=== PATIENT | male | born 1985 | race Caucasian/White ===

== ENCOUNTER 2017-09-22 16:13 | Emergency (ER) | payer OTHER ==
[~2017-09-22 16:13] MED LIST: ALL300 PO; CLR10 PO; OMEP20CA9 PO
[2017-09-22 16:18] VITALS: Ht 190.5 cm
[2017-09-22] MEDS ORDERED: CEFAZOLIN SOD 1000MG/7.5 ML IV PUSH IV STA (16:30)
[2017-09-22] MEDS ORDERED: SODIUM CHLORIDE 0.9% 1000ML 1,000 ML IV STA (16:31)
[2017-09-22] MEDS ORDERED: KETOROLAC TROMETHAMINE 30 MG/ML VIAL IV STA (16:31)
[2017-09-22] MEDS ORDERED: BUPR150T5 PO (16:35)
[2017-09-22] MEDS ORDERED: CLINDAMYCIN 600 MG/54 ML D5W IV ONE (16:45)
[2017-09-22 16:59] LABS: BASO % 0.2 %; BASO ABS # 0.02 K/uL (0-0.2); EOS % 1.9 %; EOS ABS # 0.16 K/uL (0-0.5); HEMATOCRIT 42.8 % (42-52); HEMOGLOBIN 14.4 g/dL (14.0-18.0); IG# 0.02 K/uL (0.00-0.02); LYMPH % 23.3 %; LYMPH ABS # 1.94 K/uL (1.2-3.4); MEAN CELL VOLUME 84.1 fL (80-100); MEAN CORPUSCULAR HEMOGLOBIN 28.3 pg (25-34); MEAN CORPUSCULAR HGB CONC 33.6 g/dl (32-36); MEAN PLATELET VOLUME 10.4 fL (7.4-10.4); MONO % 6.9 %; MONO ABS # 0.57 K/uL (0.11-0.59); NEUT % 67.5 %; NEUT ABS # 5.61 K/uL (1.4-6.5); PLATELET COUNT 159 K/uL (130-400); RED CELL DISTRIBUTION WIDTH SD 43.2 fL (36.4-46.3); WHITE BLOOD COUNT 8.32 K/uL (4.8-10.8)
[2017-09-22] MEDS ORDERED: CLINDAMYCIN IV 600 MG in DEXTROSE 5% 50ML 50 ML IV ONE (17:15)
[2017-09-22 17:16] LABS: BLOOD UREA NITROGEN 15 mg/dl (7-18); CALCIUM 8.5 mg/dl (8.5-10.1); CARBON DIOXIDE 32 mmol/L (21-32); CREATININE 1.02 mg/dl (0.60-1.40); GLUCOSE 90 mg/dl (70-99); POTASSIUM 3.7 mmol/L (3.5-5.1); SODIUM 139 mmol/L (136-145)
[2017-09-22] MEDS ORDERED: CLIN300C2 PO (17:54)
[2017-09-22] MEDS ORDERED: CLINDAMYCIN HCL 150 MG CAP PO ONE (18:00)
[2017-09-22] MEDS ORDERED: EMPTY 8 DRAM VIAL ONE (18:04)
[2017-09-22 18:26] VITALS: BP 143/76; PULSE 79; TEMP 37; O2SAT 98
--- NOTE | 2017-09-22 20:59 | EMERGENCY ROOM VISIT NOTE ---
History Report prepared by Niaibalejandro: Heidi Greene Under the Supervision of: Dr. Elder Pena D.O. First contact with patient: 16:24 Chief Complaint: FEVER Stated Complaint: FEVER, CELLULITIS History of Present Illness The patient is a 32 year old male who presents to the Emergency Room with complaints of a persistent fever for the past 2 days. He was unable to check his temperature at home. He reports he also noticed pain and redness in his left lower leg 2 days ago. He rates his discomfort as a 2/10 in severity. He denies any known injury but admits the tenderness feels similar to cellulitis he has experienced in the past. The patient denies any history of diabetes and chronic medical problems. He also denies any headache, change in vision, chest pain, shortness of breath, nausea, vomiting, diarrhea, pain with urination, and melena. 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 A total of 10 systems reviewed and were otherwise negative. Past Medical & Surgical Medical Problems: (1) Perforated small intestine Family History Cancer Diabetes mellitus FH: heart disease Hypertension Social History Smoking Status: Never Smoker Alcohol Use: occasionally Drug Use: none Marital Status: Housing Status: lives with family Occupation Status: employed Current/Historical Medications Scheduled Allopurinol (Allopurinol), 300 MG PO DAILY Bupropion Hcl (Bupropion Hcl Xl), 150 MG PO DAILY Clindamycin Hcl (Cleocin), 300 MG PO TID Omeprazole (Prilosec), 20 MG PO Q2D Scheduled PRN Loratadine (Claritin), 10 MG PO DAILY PRN for ALLERGIC REACTION Allergies Coded Allergies: Cephalosporins (Verified Allergy, Severe, ANAPHYLAXIS, 03/17/15) Physical Exam Vital Signs Date Time Temp Pulse Resp B/P (MAP) Pulse Ox O2 Delivery O2 Flow Rate FiO2 09/22/17 18:26 37.0 79 18 143/76 98 09/22/17 16:18 37.0 101 17 144/82 93 Room Air Physical Exam GENERAL: Sitting up in bed, alert, well appearing, well nourished, no distress, non-toxic EYE EXAM: normal conjunctiva. OROPHARYNX: no exudate, no erythema, lips, buccal mucosa, and tongue normal and mucous membranes are moist NECK: supple, no nuchal rigidity, no adenopathy, non-tender LUNGS: Clear to auscultation. Normal chest wall mechanics HEART: no murmurs, S1 normal and S2 normal ABDOMEN: abdomen soft, non-tender, normo-active bowel sounds, no masses, no rebound or guarding. BACK: Back is symmetrical on inspection and there is no deformity, no midline tenderness, no CVA tenderness. SKIN: no rashes and no bruising UPPER EXTREMITIES: upper extremities are grossly normal. LOWER EXTREMITIES: Left lower extremity with erythema tracking up to the proximal portion of the tibia, tender to palpation, warmth without induration, wraps around to both sides of the calf, but not circumferential. NEURO EXAM: Normal sensorium, cranial nerves II-XII grossly intact, normal speech, no gross weakness of arms, no gross weakness of legs. Gross sensation intact. Medical Decision & Procedures Laboratory Results 09/22/17 16:30 Red Blood Count 5.09, Mean Corpuscular Volume 84.1, Mean Corpuscular Hemoglobin 28.3, Mean Corpuscular Hemoglobin Concent 33.6, Mean Platelet Volume 10.4, Neutrophils (%) (Auto) 67.5, Lymphocytes (%) (Auto) 23.3, Monocytes (%) (Auto) 6.9, Eosinophils (%) (Auto) 1.9, Basophils (%) (Auto) 0.2, Neutrophils # (Auto) 5.61, Lymphocytes # (Auto) 1.94, Monocytes # (Auto) 0.57, Eosinophils # (Auto) 0.16, Basophils # (Auto) 0.02 09/22/17 16:30 Test 09/22/17 16:30 White Blood Count 8.32 K/uL (4.8-10.8) Red Blood Count 5.09 M/uL (4.7-6.1) Hemoglobin 14.4 g/dL (14.0-18.0) Hematocrit 42.8 % (42-52) Mean Corpuscular Volume 84.1 fL (80-100) Mean Corpuscular Hemoglobin 28.3 pg (25-34) Mean Corpuscular Hemoglobin Concent 33.6 g/dl (32-36) Platelet Count 159 K/uL (130-400) Mean Platelet Volume 10.4 fL (7.4-10.4) Neutrophils (%) (Auto) 67.5 % Lymphocytes (%) (Auto) 23.3 % Monocytes (%) (Auto) 6.9 % Eosinophils (%) (Auto) 1.9 % Basophils (%) (Auto) 0.2 % Neutrophils # (Auto) 5.61 K/uL (1.4-6.5) Lymphocytes # (Auto) 1.94 K/uL (1.2-3.4) Monocytes # (Auto) 0.57 K/uL (0.11-0.59) Eosinophils # (Auto) 0.16 K/uL (0-0.5) Basophils # (Auto) 0.02 K/uL (0-0.2) RDW Standard Deviation 43.2 fL (36.4-46.3) RDW Coefficient of Variation 14.0 % (11.5-14.5) Immature Granulocyte % (Auto) 0.2 % Immature Granulocyte # (Auto) 0.02 K/uL (0.00-0.02) Anion Gap 2.0 mmol/L (3-11) Estimated GFR () 112.2 Estimated GFR (Non- 96.8 BUN/Creatinine Ratio 14.8 (10-20) Calcium Level 8.5 mg/dl (8.5-10.1) Laboratory results per my review. Medications Administered Medications (Trade) Dose Ordered Sig/Cassidy Route Start Time Stop Time Status Last Admin Dose Admin Sodium Chloride 1,000 ml @ 999 mls/hr Q1H1M STAT IV 09/22/17 16:31 09/22/17 17:31 DC 09/22/17 16:31 999 MLS/HR Ketorolac Tromethamine (Toradol Inj) 30 mg NOW STAT IV 09/22/17 16:31 09/22/17 16:43 DC 09/22/17 16:31 30 MG Clindamycin Phosphate 600 mg/ Dextrose 54 ml @ 108 mls/hr NOW ONCE IV 09/22/17 17:15 09/22/17 17:44 DC 09/22/17 17:03 108 MLS/HR Clindamycin HCl (Cleocin Cap) 300 mg ONE ONCE PO 09/22/17 18:00 09/22/17 18:01 DC 09/22/17 18:06 300 MG ED Course ED COURSE: Vital signs were reviewed and showed the patient is hypertensive. The patients medical record was reviewed The above diagnostic studies were performed and reviewed. ED treatments and interventions as stated above. 1627: The patient was evaluated in room B8. A complete history and physical examination was performed. 1630: Cefazolin Sodium 3000 mg IV. 1631: Toradol 30 mg IV, NSS 1000 ml @ 999 mls/hr IV. 1715: Clindamycin Phosphate 600 mg/Dextrose 54 ml @ 108 mls/hr IV. 1750: Upon reevaluation, the patient is feeling well and resting comfortably. I discussed my findings with the patient and he understands and agrees with the treatment plan. 1800: Cleocin 300 mg PO. Based on the patients age, coexisting illnesses, exam and lab findings the decision to treat as an outpatient was made. The patient remained stable while under my care. The patient appeared well at the time of discharge. Medical Decision Differential diagnosis includes etiologies such as cellulitis, abscess, MRSA infection, DVT, necrotizing fasciitis, dermatitis, drug eruption, as well as others were entertained. Patient is a 32-year-old male who presents to ER for pain and redness of his left trevizo. On exam he has a clear and obvious cellulitis without induration. He is nondiabetic. Nonimmune compromised. CBC all BMP was unremarkable. Vitals show a mild tachycardia. He was given fluids and IV antibiotics. Patient was updated bedside. He has an allergy to cephalosporins which is anaphylaxis. Secondary to this he was discharged with clindamycin following IV dose. He tolerated this very well last time when he had the same presentation. Skin was outlined. He is given checked instructions to return if anything worsens. Discussed with Pt concerning signs and symptoms to watch out for. Pt was instructed to follow up with their PCP and discussed with the patient their option to return to the ED at anytime for persistent or worsening symptoms. The appropriate anticipatory guidance and out-patient management, including indications for return to the emergency department, were explained at length to the patient and understood. Medication Reconcilliation Current Medication List: was personally reviewed by me Blood Pressure Screening Patient's blood pressure: Elevated blood pressure Blood pressure disposition: Referred to PCP Impression Primary Impression: Cellulitis Scribe Attestation The scribe's documentation has been prepared under my direction and personally reviewed by me in its entirety. I confirm that the note above accurately reflects all work, treatment, procedures, and medical decision making performed by me. Departure Information Dispostion Home / Self-Care Prescriptions Clindamycin Hcl (CLEOCIN) 300 Mg Cap 300 MG PO TID for 10 Days, CAP Prov: PenaElder, DO 09/22/17 Referrals No Doctor, Assigned (PCP) Patient Instructions Cellulitis - [facility], My [facility] Additional Instructions Please follow up with your primary care doctor with in the next 24 hours. Any worsening of your symptoms, please return to the ED immediately. This includes any fevers greater than 100.4, worsening pain, increased redness or spreading of the redness beyond the line, redness shooting up your leg, unable to eat or drink, or any other concerning signs or symptoms from your standpoint. Please take antibiotics as prescribed. Redness may slightly worsening over the next 24 hours and touch/slightly go beyond the blue line. It should not worsen beyond 24 hours. At 48 hours he should be seeing improvement. Problem Qualifiers Primary Impression: Cellulitis Site of cellulitis: unspecified site Qualified Codes: L03.90 - Cellulitis, unspecified
== END 2017-09-22 18:15 | disposition home or self-care (01) ==
LOC: C.EDB 16:14
DX: L03.116 Cellulitis of left lower limb (principal); Z83.3 Family history of diabetes mellitus; Z82.49 Family history of ischemic heart disease and other diseases of the circulatory system

== ENCOUNTER 2021-12-01 12:17 | Observation (INO) ==
--- NOTE | 2021-12-01 12:25 | Emergency Department Note ---
Impression & Plan Abdominal pain, acute, right lower quadrant ED Provider Note CHIEF COMPLAINT: Right lower quadrant abdominal pain HISTORY OF PRESENTING ILLNESS: This is a 36-year-old male who presents to the emergency department by private vehicle with complaint of right lower quadrant abdominal pain that started 3 days ago. The patient states that the pain has been constant, describes as a dull ache, and rates the pain 2/10. He has been taking Tylenol and ibuprofen without much relief. He denies any associated nausea, vomiting, or diarrhea. He does note that he has been feeling slightly constipated. He has had a decreased appetite. He denies fevers or chills. Patient states that he had a CT scan performed at [facility] yesterday, which he states was performed because "I am too big for the scanner machines here." He states that he was called today and notified that his scan s howed possible appendicitis, which is why he presents to the emergency department today. He notes previous abdominal surgeries of cholecystectomy and history of a perforated diverticulitis with partial colectomy, the surgeries were performed about 12 years ago. REVIEW OF SYSTEMS: A complete 10 point review of systems was reviewed with the patient with pertinent positives and negatives as per history of present illness. All else were negative. PAST MEDICAL HISTORY: Hypertension, GERD, anxiety, depression, gout, history of cholecystectomy and bowel resection secondary to perforated bowel from diverticulitis SOCIAL HISTORY: Lives at home with family, he denies tobacco use ALLERGIES: Reviewed in chart and with the patient PHYSICAL EXAM: CONSTITUTIONAL: Pleasant and cooperative. Nontoxic-appearing and time no acute distress. Mildly dehydrated, but otherwise well appearing and well nourished. HEENT: Normocephalic, atraumatic. Pharynx normal. Tacky mucous membranes. NECK: Supple, full active range of motion without discomfort. RESPIRATORY: Clear to auscultation bilaterally with no wheezing, crackles, rhonchi or stridor. Equal expansion bilaterally. CARDIOVASCULAR: Regular rate and rhythm with no murmurs, rubs or gallops. Normal peripheral perfusion. No edema. GASTROINTESTINAL: Tender to palpation in the right lower quadrant with slight guarding and positive rebound pain. Abdomen is otherwise nontender and soft. Morbidly obese abdomen. Ventral hernia overlying midline surgical scar, nontender and reduces easily. Bowel sounds present in all quadrants. No CVA tenderness bilaterally. MUSCULOSKELETAL: Full range of motion of all joints without discomfort. INTEGUMENTARY: No rash or other significant dermatologic conditions noted. NEUROLOGIC: Alert and oriented X 4 with normal affect. Normal strength and sensation in all 4 extremities. Normal speech. Normal gait observed. ED COURSE AND MEDICAL DECISION MAKING: CC: Patient presenting with complaint of right lower quadrant abdominal pain DIFFERENTIAL DIAGNOSIS: Includes, but not limited to appendicitis, infections, diverticulitis, UTI, obstruction, mesenteric ischemia, aortic pathology, inflammatory bowel disease, renal colic, PUD, pancreatitis, biliary pathology, hernia, volvulus, constipation, as well as other pathologies. INTERPRETATION OF LABS: No leukocytosis, mild anemia, normal platelets, no s ignificant electrolyte abnormalities, normal renal function, normal liver enzymes and lipase. Coagulation factors within normal limits. UA negative for infection. COVID-19 test negative. MEDICATION RECONCILIATION: I attest that I have personally reviewed the patient's current medication list. INITIAL VITAL SIGNS REVIEW: I reviewed the patient's initial vital signs and interpret them as follows: T: Afebrile; BP: Hypertensive; HR: Within normal limits; RR: Within normal limits; Pulse Ox: Within normal limits on room air. MDM SUMMARY: Patient was evaluated at bedside, history and physical exam performed. Patient is alert and oriented, in no acute distress, resting calmly in stretc her. He is afebrile and nontoxic-appearing, and appears mildly dehydrated clinically. Tenderness to palpation in the right lower quadrant abdomen, no acute abdomen. Patient is morbidly obese with a BMI of 61. [facility], noting CT of the abdomen/pelvis was performed yesterday, which did note a prominent appearing appendix with hazy and ill-defined borders, noting suspected possible appendicitis. Of note, report states that IV and oral contrast were not performed, however the patient reports that he did have oral contrast and received IV contrast for the study. Labs were also reviewed and were fairly unremarkable, noting WBC of 8.9 hemoglobin 13.5, and platelets 195 creatinine 1.1 normal electrolytes. Cardiac monitoring: An order was placed for continuous cardiac monitoring. The monitor shows a rate of 78 bpm with normal sinus rhythm. Orders were placed for labs, UA, and IV fluid bolus for hydration we will keep the patient n.p.o. for now. Patient discussed with Dr. Zimmerman, who agrees with my assessment, plan, and disposition. Labs reviewed as above, again noting no leukocytosis or other abnormalities. No UTI. Lactate is within normal limits. I spoke on the phone with Emanuel Mccracken PA-C with General Surgery, who agreed to evaluate the patient. The patient was evaluated also by Dr. Martinez, General Surgery, who felt that the patient should be admitted to the hospital for IV antibiotics and serial examinations. He requested that the patient be admitted to the hospitalist service. IV Zosyn 4.5 g was ordered. I spoke on the phone with the [facility] hospitalist team who agreed to evaluate the patient for admission. Covid test was also ordered. Patient reassessed multiple times throughout ED stay, he has remained hemodynamically stable and afebrile and continues to decline anything for pain. The patient was updated on all results and plan for admission, all questions were answered to the best my ability and the patient was agreeable to this plan. The patient was stable at the time of admission. The chart was completed utilizing [id number] Speech voice recognition software. Grammatical errors, random word insertions, pronoun errors, and incomplete sentences are an occasional consequence of this system due to software limitations, ambient noise, and hardware issues. Any formal questions or concerns about the content, text, or information contained within the body of this dictation should be directly addressed to the nurse practitioner for clarification. 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 Depression Diverticular disease Diverticulitis of colon with perforation GERD (gastroesophageal reflux disease) Gout Perforated small intestine Surgical History History of bowel resection perforated bowel d/t diverticulitis History of cholecystectomy History of tooth extraction wisdom teeth Family History Father Family history of diabetes mellitus Grandmother (Paternal) Family history of diabetes mellitus Grandfather (Paternal) Family history of diabetes mellitus Mother Family history of esophageal cancer Social History Smoking Status: Never smoker Second Hand Exposure: Yes (parents smoked); Hx Alcohol Use: Yes Alcohol type: beer, wine and hard liquor Hx Substance Use: No Preferred Language: [place] Zealander Communication Ability: Effective Classroom Assistant Required: No Beliefs That Will Affect Care: None Current Living Situation: Spouse and Family Current Living Situation Comment: Lives with and 2 kids Feels Safe at Home: Yes Assistive Devices: Contacts and Glasses Allergies Allergies Allergy/AdvReac Type Severity Reaction Status Date / Time Cephalosporins Allergy Severe ANAPHYLAXIS Verified 12/01/21 15:32 ciprofloxacin [From Cipro] Allergy Severe Tachycardia Unverified 12/01/21 15:32 Home Meds Home Medications Medication Instructions Recorded Confirmed allopurinol 300 mg tablet 300 mg PO QAM 09/29/18 12/01/21 bupropion HCl 300 mg 24 hr tablet, 300 mg PO QAM 09/29/18 12/01/21 extended release (Wellbutrin XL) omeprazole 20 mg tablet,delayed 20 mg PO QAM 09/29/18 12/01/21 release lisinopril 20 1 tab PO QAM 04/17/20 12/01/21 mg-hydrochlorothiazide 12.5 mg tablet sertraline 50 mg tablet 50 mg PO QAM 10/02/20 12/01/21 Lactobacillus rhamnosus GG 10 1 cap PO QAM 11/17/21 12/01/21 billion cell capsule (Culturelle) cyclobenzaprine 10 mg tablet 10 mg PO BID PRN 11/17/21 12/01/21 Results & Data (ED) Vital Signs Vital Signs - 24 hr 12/01/21 12:20 12/01/21 15:13 Temperature 36.5 C Temperature Source Temporal Artery Scan Pulse Rate 86 78 Pulse Rate [Apical] 92 H Respiratory Rate 20 22 Respiratory Effort / Characteristics Non-Labored Spontaneous Non-Labored Spontaneous Respiratory Depth Normal Normal Respiratory Pattern Regular Regular Blood Pressure 170/96 H Blood Pressure [Left Arm] 124/75 Blood Pressure Mean 120 Blood Pressure Mean [Left Arm] 91 Blood Pressure Position Sitting Pulse Oximetry 98 99 Oxygen Delivery Method Room Air Room Air Sepsis Recent Fever Within 48 Hours No Sepsis New/Unexplained Change in Mental Status No Sepsis Action Taken by Nursing No Action Required Laboratory Data Result diagrams: 12/01/21 12:50 12/01/21 12:50 Lab Results 12/01/21 12/01/21 12/01/21 Range/Units 12:50 12:50 12:55 WBC 7.28 (4.8-10.8) K/uL RBC 4.87 (4.7-6.1) M/uL Hgb 13.6 L (14.0-18.0) g/dL Hct 41.8 L (42-52) % MCV 85.8 (80-100) fL MCH 27.9 (25-34) pg MCHC 32.5 (32-36) g/dL RDW Std Deviation 48.0 H (36.4-46.3) fL RDW Coeff of Donald 15.4 H (11.5-14.5) % Plt Count 189 (130-400) K/uL MPV 10.6 H (7.4-10.4) fL Immature Gran % (Auto) 0.1 % Neut % (Auto) 64.9 % Lymph % (Auto) 26.1 % [place] % (Auto) 6.0 % Eos % (Auto) 2.6 % Baso % (Auto) 0.3 % Neut # (Auto) 4.72 (1.4-6.5) K/uL Lymph # (Auto) 1.90 (1.2-3.4) K/uL [place] # (Auto) 0.44 (0.11-0.59) K/uL Eos # (Auto) 0.19 (0-0.5) K/uL Baso # (Auto) 0.02 (0-0.2) K/uL Immature Gran # (Auto) 0.01 (0.00-0.02) K/uL PT (9.0-12.0) Seconds INR (0.9-1.1) Sodium 138 (136-145) mmol/L Potassium 3.8 (3.5-5.1) mmol/L Chloride 101 (98-107) mmol/L Carbon Dioxide 33 H (21-32) mmol/L Anion Gap 4 (3-11) BUN 13 (6-23) mg/dl Creatinine 0.88 (0.6-1.4) mg/dl Est Cr Clr Drug Dosing 234.9 ml/min Est GFR ( Amer) 128.1 ml/min Est GFR (Non-Af Amer) 110.5 ml/min BUN/Creatinine Ratio 14.8 (10-20) Glucose 125 H (70-99(Fasting)) mg/dl Lactate (0.4-2.0) mmol/L Calcium 8.7 (8.5-10.1) mg/dl Total Bilirubin 1.0 (0.2-1.0) mg/dl AST 28 (13-39) U/L ALT 54 H (7-52) U/L Alkaline Phosphatase 93 (34-104) U/L Total Protein 6.6 (6.0-8.3) gm/dl Albumin 4.1 (3.4-5.0) gm/dl Globulin 2.5 (2.5-4.0) gm/dl Albumin/Globulin Ratio 1.6 (0.9-2) Lipase 23 (11-82) U/L Urine Color Yellow Urine Appearance Clear (Clear) Urine pH 7.0 (4.5-7.5) Ur Specific [place] 1.009 (1.000-1.030) Urine Protein Negative (Negative) Urine Glucose (UA) Negative (Negative) Urine Ketones Negative (Negative) Urine Blood Negative (Negative) Urine Nitrite Negative (Negative) Urine Bilirubin Negative (Negative) Urine Urobilinogen Positive H (Negative) Ur Leukocyte Esterase Negative (Negative) SARS-CoV-2, RNA, NAAT (NEGATIVE) 12/01/21 12/01/21 12/01/21 Range/Units 14:05 14:05 15:09 WBC (4.8-10.8) K/uL RBC (4.7-6.1) M/uL Hgb (14.0-18.0) g/dL Hct (42-52) % MCV (80-100) fL MCH (25-34) pg MCHC (32-36) g/dL RDW Std Deviation (36.4-46.3) fL RDW Coeff of Donald (11.5-14.5) % Plt Count (130-400) K/uL MPV (7.4-10.4) fL Immature Gran % (Auto) % Neut % (Auto) % Lymph % (Auto) % [place] % (Auto) % Eos % (Auto) % Baso % (Auto) % Neut # (Auto) (1.4-6.5) K/uL Lymph # (Auto) (1.2-3.4) K/uL [place] # (Auto) (0.11-0.59) K/uL Eos # (Auto) (0-0.5) K/uL Baso # (Auto) (0-0.2) K/uL Immature Gran # (Auto) (0.00-0.02) K/uL PT 10.6 (9.0-12.0) Seconds INR 1.0 (0.9-1.1) Sodium (136-145) mmol/L Potassium (3.5-5.1) mmol/L Chloride (98-107) mmol/L Carbon Dioxide (21-32) mmol/L Anion Gap (3-11) BUN (6-23) mg/dl Creatinine (0.6-1.4) mg/dl Est Cr Clr Drug Dosing ml/min Est GFR ( Amer) ml/min Est GFR (Non-Af Amer) ml/min BUN/Creatinine Ratio (10-20) Glucose (70-99(Fasting)) mg/dl Lactate 1.2 (0.4-2.0) mmol/L Calcium (8.5-10.1) mg/dl Total Bilirubin (0.2-1.0) mg/dl AST (13-39) U/L ALT (7-52) U/L Alkaline Phosphatase (34-104) U/L Total Protein (6.0-8.3) gm/dl Albumin (3.4-5.0) gm/dl Globulin (2.5-4.0) gm/dl Albumin/Globulin Ratio (0.9-2) Lipase (11-82) U/L Urine Color Urine Appearance (Clear) Urine pH (4.5-7.5) Ur Specific [place] (1.000-1.030) Urine Protein (Negative) Urine Glucose (UA) (Negative) Urine Ketones (Negative) Urine Blood (Negative) Urine Nitrite (Negative) Urine Bilirubin (Negative) Urine Urobilinogen (Negative) Ur Leukocyte Esterase (Negative) SARS-CoV-2, RNA, NAAT NEGATIVE (NEGATIVE) Administered Medications Discontinued Medications Sodium Chloride (Nss 1000ml) 1,000 mls @ 999 mls/hr IV .Q1H1M STA Stop: 12/01/21 13:45 Last Infusion: 12/01/21 13:57 Dose: 0 mls/hr Documented by: [id number] Admin: 12/01/21 13:01 Dose: 999 mls/hr Documented by: [id number] Piperacillin Sod/Tazobactam Sod (Zosyn) 4.5 gm in 120 mls @ 240 mls/hr IV NOW ONE Stop: 12/01/21 15:28 Last Infusion: 12/01/21 15:42 Dose: 0 mls/hr Documented by: [id number] Admin: 12/01/21 15:10 Dose: 240 mls/hr Documented by: [id number] Discharge Plan Visit Data Chief Complaint: Abdominal Pain Stated Complaint: LRQ PAIN, REF FOR APPENDICITIS ED Provider: Michelle Zimmerman ED Midlevel Provider: Brenda Fleming Discharge Problem: Abdominal pain, acute, right lower quadrant Patient Disposition: Admitted As Inpatient Condition: Good Forms Stand Alone Forms: [facility] Prescriptions Prescriptions: No Action allopurinol 300 mg Tablet 300 mg PO QAM RF: 0 bupropion HCl [Wellbutrin XL] 300 mg Tablet Extended Release 24 Hr 300 mg PO QAM RF: 0 omeprazole 20 mg Tablet,Delayed Release (Dr/Ec) 20 mg PO QAM RF: 0 lisinopril-hydrochlorothiazide 20-12.5 mg tablet 1 tab PO QAM RF: 0 sertraline 50 mg tablet 50 mg PO QAM RF: 0 cyclobenzaprine 10 mg tablet 10 mg PO BID PRN (Reason: Muscle Spasm) RF: 0 Culturelle 10 billion cell Capsule 1 cap PO QAM RF: 0 Referrals Referrals: Cosmo Garcia MD [Primary Care Provider] -
[2021-12-01] MEDS ORDERED: SODIUM CHLORIDE 0.9% 1000ML 1,000 ML IV STA (12:45)
[2021-12-01 13:11] LABS: Appearance Urine Clear (Clear); Bilirubin Urine Negative (Negative); Blood Urine Negative (Negative); Color Urine Yellow; Glucose Urine UA Negative (Negative); Ketones Urine Negative (Negative); Leukocyte Esterase Urine Negative (Negative); Nitrite Urine Negative (Negative); Protein Urine Negative (Negative); Specific Gravity Urine 1.009 (1.000-1.030); Urobilinogen Urine Positive (Negative)
[2021-12-01 13:15] LABS: Basophils # (auto) 0.02 K/uL (0-0.2); Basophils % (auto) 0.3 %; Eosinophils # (auto) 0.19 K/uL (0-0.5); Eosinophils % (auto) 2.6 %; Hematocrit (blood only) 41.8 % (42-52); Hemoglobin 13.6 g/dL (14.0-18.0); Immature Granulocytes # (auto) 0.01 K/uL (0.00-0.02); Immature Granulocytes % (auto) 0.1 %; Lymphocytes % (auto) 26.1 %; Mean Corpuscular Hemoglobin 27.9 pg (25-34); Mean Corpuscular Hgb Conc 32.5 g/dL (32-36); Mean Corpuscular Volume 85.8 fL (80-100); Mean Platelet Volume 10.6 fL (7.4-10.4); Monocytes # (auto) 0.44 K/uL (0.11-0.59); Neutrophils # (auto) 4.72 K/uL (1.4-6.5); Neutrophils % (auto) 64.9 %; Platelet Count 189 K/uL (130-400); RDW Coefficient of Variation 15.4 % (11.5-14.5); Red Blood Count 4.87 M/uL (4.7-6.1); White Blood Count 7.28 K/uL (4.8-10.8)
[2021-12-01 14:05] LABS: Albumin Globulin Ratio 1.6 (0.9-2); Albumin Level 4.1 gm/dl (3.4-5.0); BUN Creatinine Ratio 14.8 (10-20); Calcium 8.7 mg/dl (8.5-10.1); Creatinine Clr Calc Pharmacy 234.9 ml/min; Est GFR (African American) 128.1 ml/min; Est GFR (Non-African American) 110.5 ml/min; Globulin 2.5 gm/dl (2.5-4.0); Potassium 3.8 mmol/L (3.5-5.1); Total Protein 6.6 gm/dl (6.0-8.3)
[2021-12-01 14:26] LABS: Prothrombin Time 10.6 Seconds (9.0-12.0)
[2021-12-01] MEDS ORDERED: PIPERACILL/TAZOBAC CONSULT ACTIVE PRN (14:59)
[2021-12-01] MEDS ORDERED: PIPERACILLIN/TAZOBACTAM 4.5 GM/120 ML BAG IV ONE (14:59)
--- NOTE | 2021-12-01 15:28 | History & Physical Report ---
Date of Service December 01, 2021 Assessment & Plan (1) Abdominal pain, acute, right lower quadrant: Plan: CT abd/pel done outpatient yesterday concerning for potential appendicitis. Reviewed with surgery who recommends conservative management - Admit for observation on med/surg - Serial abdominal exams - Continue IV antibiotics started in the ED - Appreciate surgery input - liquid diet tonight then NPO after midnight - Labs in AM (2) Anxiety: (3) Gout: (4) GERD (gastroesophageal reflux disease): (5) Palpitations: Plan: Continue other home meds as appropriate Pt seen and reviewed with collaborating physician, Dr. Hudson. Plan of care discussed and as outlined above. DVT Prophylaxis: SCDs Code Status: full code David Quiñonez PA-C History of Present Illness Chief Complaint: RLQ Pain Primary Care Provider: Cosmo Garcia MD This is a 36 y/o male with a PMH of gout, anxiety, palpitations, GERD, and prior diverticulitis with perforation who presented to the ED today after outpatient CT abd/pel that was done yesterday for RLQ pain showed possible appendicitis. Pt reports the abrupt onset of RLQ pain three days ago that started after he went to the bathroom. The pain radiates to his right groin. It has not increased in severity or improved, is constant, and does not wax or wane. Pain is slightly better with sitting and worse with lying down, standing, or walking. The only nausea he has had was yesterday after the oral contrast for the CT. Denies fevers, chills, sweats, diarrhea, vomiting. He has had ~5 BM since the pain started but has noted straining, which is unusual for him. Denies heartburn or indigestion. He reports that he had similar pain with the perforated diverticulitis ~12 yrs ago. He was seen at [facility] for this pain yesterday but since he is over the weight limit for any of the local CT scanne , he was sent to [facility] last evening for labs and a CT abd/pel. The provider called him today to let him know that the CT was concerning for acute appendicitis so they referred him to the ED. Surgery saw the patient in the ED and recommended conservative management for now with IV antibiotics and serial abdominal exams so we were consulted for admission. Allergies Allergy/AdvReac Type Severity Reaction Status Date / Time Cephalosporins Allergy Severe ANAPHYLAXIS Verified 12/01/21 15:32 ciprofloxacin [From Cipro] Allergy Severe Tachycardia Unverified 12/01/21 15:32 Home Medications Medication Instructions Recorded Confirmed Type allopurinol 300 mg tablet 300 mg PO QAM 09/29/18 12/01/21 History bupropion HCl 300 mg 24 hr tablet, 300 mg PO QAM 09/29/18 12/01/21 History extended release (Wellbutrin XL) omeprazole 20 mg tablet,delayed 20 mg PO QAM 09/29/18 12/01/21 History release lisinopril 20 1 tab PO QAM 04/17/20 12/01/21 History mg-hydrochlorothiazide 12.5 mg tablet sertraline 50 mg tablet 50 mg PO QAM 10/02/20 12/01/21 History Lactobacillus rhamnosus GG 10 1 cap PO QAM 11/17/21 12/01/21 History billion cell capsule (Culturelle) cyclobenzaprine 10 mg tablet 10 mg PO BID PRN 11/17/21 12/01/21 History 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 Depression Diverticular disease Diverticulitis of colon with perforation GERD (gastroesophageal reflux disease) Gout Perforated small intestine Surgical History History of bowel resection perforated bowel d/t diverticulitis History of cholecystectomy History of tooth extraction wisdom teeth Family History Father Family history of diabetes mellitus Grandmother (Paternal) Family history of diabetes mellitus Grandfather (Paternal) Family history of diabetes mellitus Mother Family history of esophageal cancer Social History Smoking Status: Never smoker Second Hand Exposure: Yes (parents smoked); Hx Alcohol Use: Yes Alcohol type: beer, wine and hard liquor Hx Substance Use: No Preferred Language: Lao Communication Ability: Effective Campus Chaplain Required: No Beliefs That Will Affect Care: None Current Living Situation: Spouse and Family Current Living Situation Comment: Lives with and 2 kids Other Information That Helps Us Care for You: No Feels Safe at Home: Yes Safety Concerns: Feels Safe At This Time Assistive Devices: Contacts Review of Systems Review of Systems: All systems reviewed & are unremarkable except as noted in HPI & below Constitutional: + fatigue and + anorexia; no fever, no chills and no sweats Eyes: no diplopia Ear, Nose, Mouth, Throat: no nasal congestion, no nasal discharge and no sore throat Respiratory: no cough, no dyspnea and no wheezing Cardiovascular: + palpitations (chronic issues related to anxiety); no chest pain and no edema Gastrointestinal: as per Subjective / HPI; no blood in stools Genitourinary: + urinary frequency; no dysuria or no hematuria Musculoskeletal: no back pain and no neck pain Integumentary: no yellowing of the skin Neurologic: no dizziness, no syncope and no headache(s) Psychiatric: + anxiety; no depression Physical Exam Constitutional: + morbidly obese; no acute distress Eyes: + anicteric sclerae Neck: trachea midline Respiratory: no respiratory distress and no labored breathing Auscultation: lungs clear to auscultation bilaterally; no rales, no rhonchi and no wheezes Cardiovascular: Rate/Rhythm: regular rate and regular rhythm Heart Sounds: no murmur Vessels: dorsalis pedis pulses present and radial pulses present Extremities: + edema (trace LE edema) Gastrointestinal (Abdomen): Inspection/Auscultation: normal bowel sounds; abdomen not distended Percussion/Palpation: + abdomen tender (mild RLQ, otherwise non-tender); no guarding Musculoskeletal: Head/Neck/Chest: normocephalic, head atraumatic and neck supple Skin: no jaundice Neurologic: moves all extremities; no focal motor deficits Psychiatric: A+Ox3, euthymic affect Results & Data Results & Data ([facility]) Vital Signs (Past 12 Hours) Vital Signs Temp Pulse Pulse Resp BP BP Pulse Ox 12/01/21 15:13 78 92 H 22 124/75 99 12/01/21 12:20 36.5 C 86 20 170/96 H 98 Laboratory Results Laboratory Results - last 24 hr 12/01/21 12/01/21 12/01/21 12:50 12:50 12:55 WBC 7.28 RBC 4.87 Hgb 13.6 L Hct 41.8 L MCV 85.8 MCH 27.9 MCHC 32.5 RDW Std Deviation 48.0 H RDW Coeff of Donald 15.4 H Plt Count 189 MPV 10.6 H Immature Gran % (Auto) 0.1 Neut % (Auto) 64.9 Lymph % (Auto) 26.1 [place] % (Auto) 6.0 Eos % (Auto) 2.6 Baso % (Auto) 0.3 Neut # (Auto) 4.72 Lymph # (Auto) 1.90 [place] # (Auto) 0.44 Eos # (Auto) 0.19 Baso # (Auto) 0.02 Immature Gran # (Auto) 0.01 PT INR Sodium 138 Potassium 3.8 Chloride 101 Carbon Dioxide 33 H Anion Gap 4 BUN 13 Creatinine 0.88 Est Cr Clr Drug Dosing 234.9 Est GFR ( Amer) 128.1 Est GFR (Non-Af Amer) 110.5 BUN/Creatinine Ratio 14.8 Glucose 125 H Lactate Calcium 8.7 Total Bilirubin 1.0 AST 28 ALT 54 H Alkaline Phosphatase 93 Total Protein 6.6 Albumin 4.1 Globulin 2.5 Albumin/Globulin Ratio 1.6 Lipase 23 Urine Color Yellow Urine Appearance Clear Urine pH 7.0 Ur Specific [place] 1.009 Urine Protein Negative Urine Glucose (UA) Negative Urine Ketones Negative Urine Blood Negative Urine Nitrite Negative Urine Bilirubin Negative Urine Urobilinogen Positive H Ur Leukocyte Esterase Negative SARS-CoV-2, RNA, NAAT 12/01/21 12/01/21 12/01/21 14:05 14:05 15:09 WBC RBC Hgb Hct MCV MCH MCHC RDW Std Deviation RDW Coeff of Donald Plt Count MPV Immature Gran % (Auto) Neut % (Auto) Lymph % (Auto) [place] % (Auto) Eos % (Auto) Baso % (Auto) Neut # (Auto) Lymph # (Auto) [place] # (Auto) Eos # (Auto) Baso # (Auto) Immature Gran # (Auto) PT 10.6 INR 1.0 Sodium Potassium Chloride Carbon Dioxide Anion Gap BUN Creatinine Est Cr Clr Drug Dosing Est GFR ( Amer) Est GFR (Non-Af Amer) BUN/Creatinine Ratio Glucose Lactate 1.2 Calcium Total Bilirubin AST ALT Alkaline Phosphatase Total Protein Albumin Globulin Albumin/Globulin Ratio Lipase Urine Color Urine Appearance Urine pH Ur Specific Od[place] Urine Protein Urine Glucose (UA) Urine Ketones Urine Blood Urine Nitrite Urine Bilirubin Urine Urobilinogen Ur Leukocyte Esterase SARS-CoV-2, RNA, NAAT Pending Diagnostic Findings CT Abd/Pel 11/30/21 ([facility]) - IMPRESSION: Prominent appendix with hazy margins surrounding it. Evaluation limited the given the lack of intravenous contrast however suspect appendicitis. Examination can be repeated with intravenous contrast as clinically indicated. Otherwise correlate with patient's clinical findings. Transverse colon anterior abdominal wall hernia without obstruction. Significant splenomegaly Medications Administered Discontinued Medications Sodium Chloride (Nss 1000ml) 1,000 mls @ 999 mls/hr IV .Q1H1M STA Stop: 12/01/21 13:45 Last Infusion: 12/01/21 13:57 Dose: 0 mls/hr Documented by: [id number] Admin: 12/01/21 13:01 Dose: 999 mls/hr Documented by: [id number] Piperacillin Sod/Tazobactam Sod (Zosyn) 4.5 gm in 120 mls @ 240 mls/hr IV NOW ONE Stop: 12/01/21 15:28 Last Infusion: 12/01/21 15:42 Dose: 0 mls/hr Documented by: [id number] Admin: 12/01/21 15:10 Dose: 240 mls/hr Documented by: [id number] Supervising Physician Co-Signing Physician Notes Attending addendum: The patient was seen and examined in emergency room He was admitted with CT evidence of possible appendicitis Has had pain in the right groin following a strain and did have CT at [facility] to rule out diverticulitis Still has minimal right inguinal area pain without any associated symptoms suggestive of acute appendicitis Denies any other significant symptoms On examination Morbidly obese without any acute distress at rest Hemodynamically stable Chest- minimal crackles at the left base [id number] murmur Abdomendistendedminimal tender right inguinal area and right lower quadrant without any rebound. Bowel sounds present PC TECH-alert, awake and oriented x3 His admission labs and imaging studies reviewed Doubt any acute appendicitis with history of right inguinal/lower quadrant pain Appreciate surgery input and recommendation Agree with assessment and plan as outlined above by HAZEL Rashid Dr
--- NOTE | 2021-12-01 15:45 | Surgery Consultation ---
Date of Consultation December 01, 2021 Assessment & Plan (1) Abdominal pain, acute, right lower quadrant: CT read as prominent appearing appendix (noncontrast) normal WBC exam limited but not suggestive of appendicitis would recommend observation, treatment with IV antibiotics if not improving consider repeat imaging with contrast diet as BENITO urrutia after midnight seen in ED with Dr. Martinez History of Present Illness History of Present Illness 36 y/o male BMI 61 with RLQ pain for 3 days was seen by PCP and outpatient CT was performed yesterday. CT was performed at [facility] due to his size and he was referred to the ED today for possibility of appendicitis. Pain is overall about the same for the past few days. No fevers or chills. Appetite and activity have been normal. Allergies Allergy/AdvReac Type Severity Reaction Status Date / Time Cephalosporins Allergy Severe ANAPHYLAXIS Verified 12/01/21 15:32 ciprofloxacin [From Cipro] Allergy Severe Tachycardia Unverified 12/01/21 15:32 Home Medications Medication Instructions Recorded Confirmed Type allopurinol 300 mg tablet 300 mg PO QAM 09/29/18 12/01/21 History bupropion HCl 300 mg 24 hr tablet, 300 mg PO QAM 09/29/18 12/01/21 History extended release (Wellbutrin XL) omeprazole 20 mg tablet,delayed 20 mg PO QAM 09/29/18 12/01/21 History release lisinopril 20 1 tab PO QAM 04/17/20 12/01/21 History mg-hydrochlorothiazide 12.5 mg tablet sertraline 50 mg tablet 50 mg PO QAM 10/02/20 12/01/21 History Lactobacillus rhamnosus GG 10 1 cap PO QAM 11/17/21 12/01/21 History billion cell capsule (Culturelle) cyclobenzaprine 10 mg tablet 10 mg PO BID PRN 11/17/21 12/01/21 History Patient History Medical History Allergic rhinitis Anxiety Cholecystitis 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 Depression Diverticular disease Diverticulitis of colon with perforation GERD (gastroesophageal reflux disease) Gout Perforated small intestine Surgical History History of bowel resection perforated bowel d/t diverticulitis History of cholecystectomy History of tooth extraction wisdom teeth Family History Father Family history of diabetes mellitus Grandmother (Paternal) Family history of diabetes mellitus Grandfather (Paternal) Family history of diabetes mellitus Mother Family history of esophageal cancer Social History Smoking Status: Never smoker Second Hand Exposure: Yes (parents smoked); Hx Alcohol Use: Yes Alcohol type: beer, wine and hard liquor Hx Substance Use: No Preferred Language: Croatian Communication Ability: Effective License Examiner Required: No Beliefs That Will Affect Care: None Current Living Situation: Spouse and Family Current Living Situation Comment: Lives with and 2 kids Feels Safe at Home: Yes Assistive Devices: Contacts and Glasses Review of Systems Constitutional: no fever and no chills Gastrointestinal: + abdominal pain; no bloating, no nausea and no vomiting h/o diverticular perforation Physical Exam Constitutional: WD/WN, vitals as above + morbidly obese; no acute distress Respiratory: normal respiratory effort Cardiovascular: Rate/Rhythm: regular rate Gastrointestinal (Abdomen): Inspection/Auscultation: + abdominal surgical scar (midline) Percussion/Palpation: + abdomen tender (RLQ, nonlocalizing) and abdomen soft; no guarding Results & Data ([facility]) Vital Signs (Past 12 Hours) Vital Signs Temp Pulse Pulse Resp BP BP Pulse Ox 12/01/21 15:13 78 92 H 22 124/75 99 12/01/21 12:20 36.5 C 86 20 170/96 H 98 PG Care Time/CCT Total # of Minutes Spent Total Time Spent with Patient: Total time spent is greater than 50% in coordination of care (as documented) at patient's floor/unit and/or counseling patient: Coding Level of Care Code 37852 Inpt Consult Level 3 Diagnoses Abdominal pain, acute, right lower quadrant R10.31
[2021-12-01] MEDS ORDERED: ONDANSETRON INJ 2 MG/ML 2 ML VIAL IV PRN (17:56)
[2021-12-01] MEDS: PIPERACILLIN/TAZOBACTAM 4.5 GM in DEXTROSE 5% 100 ML IV SCH (20:45)
[2021-12-01] MEDS: IBUPROFEN 200 MG TAB PO PRN (21:20)
[2021-12-01] MEDS: ACETAMINOPHEN 325 MG TAB PO PRN (21:20)
[2021-12-02] MEDS: PIPERACILLIN/TAZOBACTAM 4.5 GM in DEXTROSE 5% 100 ML IV SCH ×3 (04:00→20:20)
[2021-12-02 06:36] LABS: Basophils # (auto) 0.01 K/uL (0-0.2); Basophils % (auto) 0.2 %; Eosinophils % (auto) 3.8 %; Hematocrit (blood only) 40.3 % (42-52); Hemoglobin 12.9 g/dL (14.0-18.0); Immature Granulocytes # (auto) 0.01 K/uL (0.00-0.02); Immature Granulocytes % (auto) 0.2 %; Lymphocytes % (auto) 30.2 %; Mean Corpuscular Hemoglobin 27.6 pg (25-34); Mean Corpuscular Volume 86.1 fL (80-100); Mean Platelet Volume 10.1 fL (7.4-10.4); Monocytes # (auto) 0.35 K/uL (0.11-0.59); Monocytes % (auto) 6.6 %; Neutrophils # (auto) 3.12 K/uL (1.4-6.5); Platelet Count 153 K/uL (130-400); RDW Coefficient of Variation 15.6 % (11.5-14.5); RDW Standard Deviation 48.9 fL (36.4-46.3); Red Blood Count 4.68 M/uL (4.7-6.1); White Blood Count 5.29 K/uL (4.8-10.8)
[2021-12-02 07:01] LABS: Calcium 8.4 mg/dl (8.5-10.1); Creatinine Clr Calc Pharmacy 206.7 ml/min; Est GFR (African American) 111.7 ml/min; Est GFR (Non-African American) 96.4 ml/min; Potassium 3.9 mmol/L (3.5-5.1)
--- NOTE | 2021-12-02 10:18 | Surgery Progress Note ---
Date of Service December 02, 2021 Assessment & Plan (1) Abdominal pain, acute, right lower quadrant: Plan: seen with Dr. Martinez WBC 5, Tmax 37.6 continue IV Zosyn another day can resume diet Admission and Anticipated Discharge Date Admission Date: December 01, 2021 Subjective some increased pain last night but better this AM Physical Exam Gastrointestinal (Abdomen): Inspection/Auscultation: + visible herniation and + abdominal surgical scar Percussion/Palpation: + abdomen tender (RLQ about the same or slightly less) and abdomen soft; no guarding Results & Data ([facility]) Vital Signs (Past 12 Hours) Vital Signs Temp Pulse Resp BP Pulse Ox 12/02/21 07:33 36.4 C L 68 16 146/78 H 97 PG Care Time/CCT Total # of Minutes Spent Total Time Spent with Patient: Total time spent is greater than 50% in coordination of care (as documented) at patient's floor/unit and/or counseling patient: Coding Level of Care Code 33602 Subseq Hosp Care Lvl 1 Diagnoses Abdominal pain, acute, right lower quadrant R10.31
--- NOTE | 2021-12-02 12:52 | Hospitalist Progress Note ---
Date of Service December 02, 2021 Assessment & Plan (1) Abdominal pain, acute, right lower quadrant: Plan: Present on admission with RLQ pain after outpatient CT abd/pelvis suspicious for appendicitis Outpatient CT abd/pelvis showed prominent appendix with hazy margins surrounding it. Suspect for appendicitis. Surgery on board recommended conservative management Continue IVF abx with IV Zosyn Tolerated diet Continue pain med prn (2) Anxiety: Plan: Continue Bupropion and Zoloft stable (3) Gout: Plan: Continue Allopurinol (4) GERD (gastroesophageal reflux disease): Plan: Continue PPI Plan: DVT Prophylaxis: SCDs ( in case pt requires any surgical intervention Code Status: full code Admission and Anticipated Discharge Date Admission Date: December 01, 2021 Subjective Pt was seen and examined for follow up of RLQ abdominal pain Sitting in bed with no acute distress eating his lunch Pt said that he feels alot better He said that his pain is better control today Denies any fever, chest pain, nausea and vomiting Review of Systems Review of Systems: All systems reviewed & are unremarkable except as noted in Subjective Physical Exam Physical Exam: General- No acute distress Head- atraumatic Eyes- PERRL, EOMI, ENT- oropharynx clear Neck- supple, no JVD Lungs- clear to auscultation Heart- regular rhythm; no murmur Abdomen- normal bowel sounds, +hernia, old abdominal surgical scar, +mild RLQ tenderness Neuro- alert, oriented x 3; PERRL, EOMI; no facial palsy; no dysarthria Extremity- +edema Skin- warm & dry Results & Data Results & Data ([facility]) Vital Signs (Past 12 Hours) Vital Signs Temp Pulse Resp BP Pulse Ox 12/02/21 07:33 36.4 C L 68 16 146/78 H 97
[2021-12-02] MEDS: SERTRALINE HCL 50 MG TABLET PO SCH (13:27)
[2021-12-02] MEDS: allopurinoL 300 MG TAB PO SCH (13:27)
[2021-12-02] MEDS: ADVANCED PROBIOTIC 1250 MG CAPSULE PO SCH (13:28)
[2021-12-02] MEDS: PANTOprazole 40 MG TAB PO SCH (13:28)
[2021-12-02] MEDS: buPROPion XL 300 MG TABCR PO SCH (13:28)
[2021-12-02] MEDS: IBUPROFEN 200 MG TAB PO PRN (20:21)
[2021-12-02] MEDS: ACETAMINOPHEN 325 MG TAB PO PRN (20:21)
[2021-12-03] MEDS: PIPERACILLIN/TAZOBACTAM 4.5 GM in DEXTROSE 5% 100 ML IV SCH ×2 (04:13→13:35)
--- NOTE | 2021-12-03 09:33 | Surgery Progress Note ---
Date of Service December 03, 2021 Assessment & Plan (1) Abdominal pain, acute, right lower quadrant: Plan: Patient feeling well. Pain improved Tolerating a diet, + bowel function Okay for discharge from our point of view Recommend completing a course of abx....10 more days, can go out on Augmentin F/u in clinic within 1-2 weeks Pt seen/examined with Dr. Martinez Admission and Anticipated Discharge Date Admission Date: December 01, 2021 Subjective Patient feeling better. Not having much pain. Tolerating a diet. + BMs. Physical Exam Physical Exam: awake/alert, no distress Results & Data ([facility]) Vital Signs (Past 12 Hours) Vital Signs Temp Pulse Resp BP Pulse Ox 12/03/21 07:41 36.6 C 77 16 152/90 H 96 12/02/21 22:07 36.7 C 92 H 19 133/85 94 PG Care Time/CCT Total # of Minutes Spent Total Time Spent with Patient: Total time spent is greater than 50% in coordination of care (as documented) at patient's floor/unit and/or counseling patient: Coding Level of Care Code 71671 Subseq Hosp Care Lvl 1 Diagnoses Abdominal pain, acute, right lower quadrant R10.31
[2021-12-03] MEDS: buPROPion XL 300 MG TABCR PO SCH (09:47)
[2021-12-03] MEDS: ADVANCED PROBIOTIC 1250 MG CAPSULE PO SCH (09:47)
[2021-12-03] MEDS: PANTOprazole 40 MG TAB PO SCH (09:47)
[2021-12-03] MEDS: allopurinoL 300 MG TAB PO SCH (09:47)
[2021-12-03] MEDS: SERTRALINE HCL 50 MG TABLET PO SCH (09:47)
--- NOTE | 2021-12-03 15:09 | Discharge Summary ---
Date of Service December 03, 2021 Admission HPI Per Admitting Provider This is a 36 y/o male with a PMH of gout, anxiety, palpitations, GERD, and prior diverticulitis with perforation who presented to the ED today after outpatient CT abd/pel that was done yesterday for RLQ pain showed possible appendicitis. Pt reports the abrupt onset of RLQ pain three days ago that started after he went to the bathroom. The pain radiates to his right groin. It has not increased in severity or improved, is constant, and does not wax or wane. Pain is slightly better with sitting and worse with lying down, standing, or walking. The only nausea he has had was yesterday after the oral contrast for the CT. Denies fevers, chills, sweats, diarrhea, vomiting. He has had ~5 BM since the pain started but has noted straining, which is unusual for him. Denies heartburn or indigestion. He reports that he had similar pain with the perforated diverticulitis ~12 yrs ago. He was seen at [facility] for this pain yesterday but since he is over the weight limit for any of the local CT scanners, he was sent to [place] last evening for labs and a CT abd/pel. The provider called him today to let him know that the CT was concerning for acute appendicitis so they referred him to the ED. Surgery saw the patient in the ED and recommended conservative management for now with IV antibiotics and serial abdominal exams so we were consulted for admission. Discharge Exam General- No acute distress Head- atraumatic Eyes- PERRL, EOMI, ENT- oropharynx clear Neck- supple, no JVD Lungs- clear to auscultation Heart- regular rhythm; no murmur Abdomen- normal bowel sounds, +hernia, old abdominal surgical scar, +mild RLQ tenderness Neuro- alert, oriented x 3; PERRL, EOMI; no facial palsy; no dysarthria Extremity- +edema Skin- warm & dry Discharge Data Allergies Allergy/AdvReac Type Severity Reaction Status Date / Time Cephalosporins Allergy Severe ANAPHYLAXIS Verified 12/01/21 15:32 ciprofloxacin [From Cipro] Allergy Severe Tachycardia Unverified 12/01/21 15:32 Consultations 12/01/21 15:21 Consult General Surgery Stat ED Decision to Admit Stat Hospital Course (1) Abdominal pain, acute, right lower quadrant: Present on admission with RLQ pain after outpatient CT abd/pelvis suspicious for appendicitis Outpatient CT abd/pelvis showed prominent appendix with hazy margins surrounding it. Suspect for appendicitis. Surgery on board recommended conservative management Continue IVF abx with IV Zosyn Tolerated diet Continue pain med prn (2) Anxiety: Continue Bupropion and Zoloft stable (3) Gout: Continue Allopurinol (4) GERD (gastroesophageal reflux disease): Continue PPI DVT Prophylaxis: SCDs ( in case pt requires any surgical intervention Code Status: full code Discharge Plan Discharge Items Patient Disposition: Home - Self-Care Reason For Visit: LRQ PAIN, REF FOR APPENDICITIS Discharge Diagnosis: Abdominal pain, acute, right lower quadrant: Condition on Discharge: Good Activity: Resume your previous activity Non-emergency contact: Primary Care Provider and Surgeon Call non-emergency contact if: you have any medication questions and your temperature is above 101 Follow-up/Referrals: Kleber Martinez MD, FACS [Surgeon] - (Follow up in clinic within 1 week) Cosmo Garcia MD [Primary Care Provider] - Diet: Regular Addtl Attending Provider Instructions: Follow up with your primary care provider in 1 week (please call for the appointment) Follow up with surgery in 1 week ( Please call for the appointment ) Complete the course of the antibiotic with Augmentin Seek medical attention if your symptoms worsening or develop any fever Pending Studies at Discharge: No Stand-Alone Forms: My [facility] [employer], Smoking Cessation Medications and DC Order Prescriptions: New amoxicillin-pot clavulanate 875-125 mg tablet 1 tab PO BID 10 Days Qty: 20 RF: 0 Continued allopurinol 300 mg Tablet 300 mg PO QAM RF: 0 bupropion HCl [Wellbutrin XL] 300 mg Tablet Extended Release 24 Hr 300 mg PO QAM RF: 0 omeprazole 20 mg Tablet,Delayed Release (Dr/Ec) 20 mg PO QAM RF: 0 lisinopril-hydrochlorothiazide 20-12.5 mg tablet 1 tab PO QAM RF: 0 sertraline 50 mg tablet 50 mg PO QAM RF: 0 cyclobenzaprine 10 mg tablet 10 mg PO BID PRN (Reason: Muscle Spasm) RF: 0 Culturelle 10 billion cell Capsule 1 cap PO QAM RF: 0 Discharge Orders: Discharge Order (Routine); Ordered 12/03/21 Ordered By: Keith Painting Admission Data Admit Date/Time: 12/01/21 16:15 Attending Provider: Keith Painting Admit Provider: Dio Hudson Primary Care Provider: Cosmo Garcia Other Providers: Dio Hudson ; Kleber Martinez
[2021-12-03] MEDS ORDERED: AMOXICILLIN/CLAVULANATE 875 MG TAB PO SCH (15:30)
== END 2021-12-03 17:31 | disposition home or self-care (01) ==
LOC: ED 12:17 → 3N 12:17 → SUATTDRO 16:15 → 3N 17:24